=== PATIENT | male | born 1975 | race Two or more races ===

== ENCOUNTER → 2019-07-01 | Day surgery (SDC) | payer BC ==
[2019-06-27 11:40] LABS: BASOPHILS % 0.3 % (0.0-1.0); EOSINOPHILS # (AUTO) 0.4 (0.0-0.4); EOSINOPHILS % 7.3 % (0.0-6.0); HEMATOCRIT 38.7 % (38.2-49.6); HEMOGLOBIN 13.3 g/dL (14.0-18.0); LYMPHOCYTES # (AUTO) 2.1 (1.0-3.2); LYMPHOCYTES % 36.2 % (18.0-39.1); MEAN CORPUSCULAR HEMOGLOBIN 31.3 pg (28-32); MEAN CORPUSCULAR HGB CONC 34.4 g/dL (31-35); MEAN CORPUSCULAR VOLUME 91.1 fL (81-99); MONOCYTES # (AUTO) 0.4 (0.2-0.8); MONOCYTES % 7.7 % (4.4-11.3); NEUTROPHILS # (AUTO) 2.8 (2.1-6.9); PLATELET COUNT 169 x10e3/uL (140-360); RED BLOOD COUNT 4.25 x10e6/uL (4.3-5.7); RED CELL DISTRIBUTION WIDTH 11.9 % (11.7-14.4)
[2019-06-27 11:58] LABS: ALANINE AMINOTRANSFERASE 34 IU/L (0-55); ALBUMIN/GLOBULIN RATIO 1.4 (0.8-2.0); ALKALINE PHOSPHATASE 68 IU/L (40-150); ANION GAP 14.1 mmol/L (8-16); BLOOD UREA NITROGEN 14 mg/dL (7-26); BUN/CREATININE RATIO 18 (6-25); CALCIUM 9.1 mg/dL (8.4-10.2); CARBON DIOXIDE 23 mmol/L (22-29); CHLORIDE 103 mmol/L (98-107); CREATININE, SERUM 0.78 mg/dL (0.72-1.25); EST GLOMERULAR FILTRATION RATE > 60 ML/MIN (60-); GLUCOSE 109 mg/dL (74-118); POTASSIUM 4.1 mmol/L (3.5-5.1); SODIUM 136 mmol/L (136-145)
[~2019-07-01] VITALS: Ht 170.2 cm; Wt 103.0 kg
[~2019-07-01] MED LIST: ALPRAZOLAM 0.5 MG TAB ONE; ASPIRIN 325 MG TAB ONE; ASPIRIN EC81 MG PO; ATORVASTATIN CA20 MG PO; BIVALRIUDIN 250 MG/VIAL VIAL IV ONE; BRILINTA90 MG PO; BYSTOLIC10 MG PO; DIPHENHYDRAMINE HCL 25 MG CAP ONE; EFFIENT10 MG PO; FENTANYL CITRATE/PF 100MCG/2 ML INJ ONE; HEPARIN SOD (PORCINE) 1000 UNIT/ML 30ML ONE; HEPARIN SOD/SOD CHLORIDE 2,000 ML ONE; IOPAMIDOL 370 MG/ML 200 ML INFUS..BTL INJ ONE; LIDOCAINE HCL 2% LOCAL 20 ML VIAL ONE; LORATADINE10 MG PO; LOSARTAN POTASS25 MG PO; METOPROLOL SUCC25 MG PO; MIDAZOLAM HCL 2 MG/2 ML VIAL ONE; NORCO 10-325 T1 EACH PO; PRASUGREL 10 MG TAB ONE; SODIUM CHLORIDE 0.9% 1000ML 1,000 ML ONE; SODIUM CHLORIDE 0.9% 50ML 50 ML ONE; TRAMADOL HCL E200 MG PO; VERAPAMIL HCL 2.5 MG/ML 2 ML VIAL ONE; ZOLPIDEM TARTRA10 MG PO
[2019-07-01 15:45] VITALS: BP 130/84
[2019-07-01 16:00] VITALS: BP 130/85
[2019-07-01 16:30] VITALS: BP 133/87
[2019-07-01 17:00] VITALS: BP 126/95
[2019-07-01 19:00] VITALS: BP 123/83
[2019-07-01 20:00] VITALS: BP 130/84
--- NOTE | 2019-07-18 16:22 | Operative Report ---
DATE OF PROCEDURE: 07/01/2019 SURGEON: Rudy Caballero MD INDICATIONS: Coronary artery disease. PROCEDURES PERFORMED: 1. Left heart catheterization, selective coronary angiography. 2. Stent placement to the left anterior descending artery. RECOMMENDATIONS: Staged intervention of the ramus intermedius artery. DESCRIPTION OF PROCEDURE: Access obtained in the right radial artery. A 5-Khmer sheath was placed. Coronary angiography demonstrated patent stents with 20% to 30% in-stent restenosis of the right coronary artery. Left anterior descending artery mid 70%, ramus intermedius 80%. Circumflex was small vessel. A decision was made to intervene on the left anterior descending artery. The patient received intravenous Angiomax for anticoagulation. The left main was cannulated using an EBU 3.75, 5-Khmer guiding catheter. Short Runthrough wire was advanced across the lesion. A single 2.75 x 15 mm Resolute [place] stent was deployed at 18 atmospheres, excellent end result. Postdilatation with a 3.25 mm balloon, excellent LORENZA-3 flow. LV end-diastolic pressure of 23. No gradient across the aortic valve on pullback. Right wrist TR band applied. The patient discharged home the same day. Rudy Caballero MD [facility] /[id number]
== END | disposition home or self-care (01) ==
LOC: CATH LAB 11:34
PROVIDERS: ATTEND Internal Medicine Interventional Cardiology
DX: I25.118 Atherosclerotic heart disease of native coronary artery with other forms of angina pectoris (principal); Z95.5 Presence of coronary angioplasty implant and graft; Z01.812 Encounter for preprocedural laboratory examination; Z79.82 Long term (current) use of aspirin; Z68.35 Body mass index [BMI] 35.0-35.9, adult; Z82.49 Family history of ischemic heart disease and other diseases of the circulatory system
CPT/HCPCS: 36415; 80053; 85025; 92928; 93458; C1725; C1769 ×2; C1874; C1887; J0583; J1644; J2001; J2250; J3010; J7030; Q9967; 99152; 99153

== ENCOUNTER → 2019-10-31 | Outpatient (CLI) | payer BC ==
[~2019-10-31] MED LIST changes: -ALPRAZOLAM 0.5 MG TAB ONE; -ASPIRIN 325 MG TAB ONE; -BIVALRIUDIN 250 MG/VIAL VIAL IV ONE; -DIPHENHYDRAMINE HCL 25 MG CAP ONE; -FENTANYL CITRATE/PF 100MCG/2 ML INJ ONE; -HEPARIN SOD (PORCINE) 1000 UNIT/ML 30ML ONE; -HEPARIN SOD/SOD CHLORIDE 2,000 ML ONE; -IOPAMIDOL 370 MG/ML 200 ML INFUS..BTL INJ ONE; -LIDOCAINE HCL 2% LOCAL 20 ML VIAL ONE; -MIDAZOLAM HCL 2 MG/2 ML VIAL ONE; -PRASUGREL 10 MG TAB ONE; -SODIUM CHLORIDE 0.9% 1000ML 1,000 ML ONE; -SODIUM CHLORIDE 0.9% 50ML 50 ML ONE; -VERAPAMIL HCL 2.5 MG/ML 2 ML VIAL ONE
--- NOTE | 2019-10-31 12:31 | Diagnostic Imaging Report ---
Bilateral feet, 3 views each Clinical indication: Foot pain. Heel pain Comparison: None Findings: Right foot: There is no radiographic evidence of acute fracture or dislocation. No osseous erosions are identified. The bone mineralization is normal. The joint spaces are preserved. No calcaneal enthesophytes are identified. Left foot: There is no radiographic evidence of acute fracture or dislocation. No osseous erosions are identified. The bone mineralization is normal. The joint spaces are preserved. No calcaneal enthesophytes are identified. Impression: Normal radiographs of the bilateral feet Signed by: Garcia Adame MD on 10/31/2019 12:28 PM
== END ==
LOC: RAD 10:39
PROVIDERS: ATTEND Internal Medicine
DX: M79.672 Pain in left foot (principal); M79.671 Pain in right foot; M13.872 Other specified arthritis, left ankle and foot; M13.871 Other specified arthritis, right ankle and foot

== ENCOUNTER → 2019-12-14 | Outpatient (CLI) | payer BC ==
[~2019-12-14] VITALS: Ht 170.2 cm; Wt 100.7 kg
[~2019-12-14] MED LIST changes: +ASPIR 8181 MG PO
--- NOTE | 2019-12-14 09:50 | NUR ---
Checked patient's temperature 97.3F via skin probe. Patient denies being out of the country or out of the state in the last 14 days. Patient denies being around anyone who has been out of the country or out of the state in the last 14 days. Patient denies being around anyone who has been exposed or diagnosed with COVID-19 in the last 14 days. Patient denies new onset fever, cough, or shortness of breath in the last 14 days.
[2019-12-14 10:36] LABS: BASOPHILS % 0.3 % (0.0-1.0); EOSINOPHILS # (AUTO) 0.4 (0.0-0.4); EOSINOPHILS % 6.5 % (0.0-6.0); HEMATOCRIT 41.3 % (38.2-49.6); HEMOGLOBIN 14.1 g/dL (14.0-18.0); LYMPHOCYTES # (AUTO) 2.2 (1.0-3.2); LYMPHOCYTES % 33.7 % (18.0-39.1); MEAN CORPUSCULAR HEMOGLOBIN 30.9 pg (28-32); MEAN CORPUSCULAR HGB CONC 34.1 g/dL (31-35); MEAN CORPUSCULAR VOLUME 90.6 fL (81-99); MONOCYTES # (AUTO) 0.5 (0.2-0.8); MONOCYTES % 6.9 % (4.4-11.3); NEUTROPHILS # (AUTO) 3.5 (2.1-6.9); NEUTROPHILS % 51.8 % (38.7-80.0); PLATELET COUNT 178 x10e3/uL (140-360); RED BLOOD COUNT 4.56 x10e6/uL (4.3-5.7); RED CELL DISTRIBUTION WIDTH 11.9 % (11.7-14.4)
[2019-12-14 10:58] LABS: ALANINE AMINOTRANSFERASE 33 IU/L (0-55); ALBUMIN 4.4 g/dL (3.5-5.0); ALBUMIN/GLOBULIN RATIO 1.6 (0.8-2.0); ALKALINE PHOSPHATASE 81 IU/L (40-150); ANION GAP 10.3 mmol/L (8-16); BLOOD UREA NITROGEN 11 mg/dL (7-26); BUN/CREATININE RATIO 14 (6-25); CARBON DIOXIDE 26 mmol/L (22-29); CHLORIDE 105 mmol/L (98-107); CREATININE, SERUM 0.78 mg/dL (0.72-1.25); EST GLOMERULAR FILTRATION RATE > 60 ML/MIN (60-); GLUCOSE 108 mg/dL (74-118); POTASSIUM 4.3 mmol/L (3.5-5.1); SODIUM 137 mmol/L (136-145)
[2019-12-14 11:25] LABS: CALCIUM 10.1 mg/dL (8.4-10.2)
== END ==
LOC: DX 10:38 → EDSTATUS 12-20 14:00
PROVIDERS: ATTEND Internal Medicine Interventional Cardiology
DX: Z01.818 Encounter for other preprocedural examination (principal); I25.10 Atherosclerotic heart disease of native coronary artery without angina pectoris
CPT/HCPCS: 36415; 80053; 85025

== ENCOUNTER 2020-11-30 15:11 | Emergency (ER) | payer BC ==
[~2020-11-30] VITALS: Ht 170.2 cm; Wt 103.6 kg
[2020-11-30] MEDS ORDERED: TIZANIDINE HCL4 M1 PO (16:05)
[2020-11-30 19:09] VITALS: BP 166/96
== END 2020-11-30 19:09 | disposition home or self-care (01) ==
LOC: FSED 15:15
DX: M79.662 Pain in left lower leg (principal); S80.12XA Contusion of left lower leg, initial encounter; I10 Essential (primary) hypertension; E78.5 Hyperlipidemia, unspecified; I25.10 Atherosclerotic heart disease of native coronary artery without angina pectoris; M54.5 Low back pain; G89.29 Other chronic pain; Z95.5 Presence of coronary angioplasty implant and graft
CPT/HCPCS: 99283

== ENCOUNTER 2024-06-29 14:41 | Emergency (ER) | payer BC ==
[~2024-06-29] VITALS: Ht 170.2 cm; Wt 94.8 kg
[~2024-06-29 14:41] MED LIST changes: +TIZANIDINE HCL4 M1 PO
[2024-06-29 15:43] LABS: BASOPHILS % 0.1 % (0.0-1.0); HEMATOCRIT 38.2 % (38.2-49.6); HEMOGLOBIN 12.5 g/dL (14.0-18.0); LYMPHOCYTES # (AUTO) 1.2 (1.0-3.2); LYMPHOCYTES % 8.3 % (18.0-39.1); MEAN CORPUSCULAR HEMOGLOBIN 30.9 pg (28-32); MEAN CORPUSCULAR HGB CONC 32.7 g/dL (31-35); MEAN CORPUSCULAR VOLUME 94.6 fL (81-99); MONOCYTES # (AUTO) 0.6 (0.2-0.8); MONOCYTES % 3.8 % (4.4-11.3); NEUTROPHILS # (AUTO) 12.8 (2.1-6.9); NEUTROPHILS % 87.3 % (38.7-80.0); PLATELET COUNT 196 x10e3/uL (140-360); RED BLOOD COUNT 4.04 x10e6/uL (4.3-5.7); RED CELL DISTRIBUTION WIDTH 12.4 % (11.7-14.4); WHITE BLOOD COUNT 14.65 x10e3/uL (4.8-10.8)
[2024-06-29 16:02] LABS: ALBUMIN 4.1 g/dL (3.5-5.0); ALBUMIN/GLOBULIN RATIO 1.2 (0.8-2.0); ANION GAP 18.3 mmol/L (8-16); BILIRUBIN,TOTAL 1.7 mg/dL (0.2-1.2); CALCIUM 9.9 mg/dL (8.4-10.2); CREATININE, SERUM 0.82 mg/dL (0.72-1.25); POTASSIUM 4.3 mmol/L (3.5-5.1); TOTAL PROTEIN 7.6 g/dL (6.5-8.1)
[2024-06-29 16:09] LABS: TROPONIN I 0.009 ng/mL (0-0.300)
[2024-06-29] MEDS ORDERED: SINGULAIR10 MG PO (17:22)
[2024-06-29 17:43] VITALS: PULSE 64; RESP 16; TEMP 98.4; O2SAT 100
== END 2024-06-29 17:49 | disposition home or self-care (01) ==
LOC: ER 14:48
DX: R06.02 Shortness of breath (principal); J40 Bronchitis, not specified as acute or chronic; R05.9 Cough, unspecified; I10 Essential (primary) hypertension; E78.5 Hyperlipidemia, unspecified; I25.10 Atherosclerotic heart disease of native coronary artery without angina pectoris; Z95.5 Presence of coronary angioplasty implant and graft
CPT/HCPCS: 36415; 71045; 80053; 83880; 84484; 85025; 93005; 99284